=== PATIENT | female | born 1965 | race Caucasian/White ===

== ENCOUNTER → 2016-11-03 | Outpatient (CLI) | payer OTHER ==
[2016-11-03 07:52] LABS: BLOOD UREA NITROGEN 14 mg/dL (7-18)
[2016-11-03 08:04] LABS: ASPARTATE AMINO TRANSFERASE 95 U/L (15-37)
[2016-11-05 12:07] LABS: ENDOMYSIAL IGA Negative (Negative); IMMUNOGLOBULIN A 156 mg/dL (87-352)
== END | disposition home or self-care (01) ==
LOC: LAB 07:14
PROVIDERS: ATTEND Family Medicine
DX: Z00.01 Encounter for general adult medical examination with abnormal findings (principal); E66.9 Obesity, unspecified; R03.0 Elevated blood-pressure reading, without diagnosis of hypertension; R14.0 Abdominal distension (gaseous); R19.7 Diarrhea, unspecified; E78.5 Hyperlipidemia, unspecified; E55.9 Vitamin D deficiency, unspecified; R79.89 Other specified abnormal findings of blood chemistry
CPT/HCPCS: 36415; 80053; 80061; 82306; 82784; 83036; 83516; 84436; 84443; 84480; 84481; 85025; 86003; 86005; 86255

== ENCOUNTER → 2016-11-26 | Outpatient (CLI) | payer OTHER ==
[2016-11-26 09:39] LABS: FERRITIN 224.5 ng/mL (8-252)
[2016-11-27 09:41] LABS: HEP B SURF. AB < 3.1 mIU/mL (0.0-10.0)
[2016-11-27 10:18] LABS: HEPATITIS A ANTIBODY TOTAL Nonreactive (Nonreactive)
== END | disposition home or self-care (01) ==
LOC: LAB 09:07
PROVIDERS: ATTEND Internal Medicine
DX: R79.89 Other specified abnormal findings of blood chemistry (principal)
CPT/HCPCS: 36415; 82390; 82728; 83516; 83540; 83550; 86706; 86708; 86803

== ENCOUNTER → 2016-11-27 | Outpatient (CLI) | payer OTHER | END | disposition home or self-care (01) | LOC: CFH 06:46 | PROVIDERS: ATTEND Internal Medicine | DX: K76.0 Fatty (change of) liver, not elsewhere classified (principal); K80.20 Calculus of gallbladder without cholecystitis without obstruction; R79.89 Other specified abnormal findings of blood chemistry | CPT/HCPCS: 76700 ==

== ENCOUNTER 2016-12-26 10:32 | Day surgery (SDC) | payer OTHER ==
[~2016-12-26] VITALS: Ht 160 cm; Wt 92.9 kg
[2016-12-26] MEDS ORDERED: SODIUM CHLORIDE 0.9% 1,000 ML IV SCH (11:13)
[2016-12-26 11:42] VITALS: BP 143/94
[2016-12-26] MEDS ORDERED: NONE PER PT (11:44)
[2016-12-26] MEDS ORDERED: LIDOCAINE 2%, 20ML ONE (11:50)
[2016-12-26] MEDS ORDERED: FENTANYL PF 100 MCG/2ML ONE (12:09)
[2016-12-26] MEDS ORDERED: FLUMAZENIL 0.1 MG/1 ML, 5ML ONE (12:09)
[2016-12-26] MEDS ORDERED: MIDAZOLAM 1 MG/ML, 5ML ONE (12:09)
[2016-12-26] MEDS ORDERED: NALOXONE 1 MG/ML, 2ML ONE (12:09)
== END 2016-12-26 14:55 ==
LOC: OUT 10:32
PROVIDERS: ATTEND Internal Medicine
DX: K76.0 Fatty (change of) liver, not elsewhere classified (principal)
CPT/HCPCS: 36415; 47000; 76942; 85610; 88307; 88313; 99156; 99157; J2250; J3010; J3490; J7030; J2310

== ENCOUNTER → 2017-01-27 | Outpatient (CLI) | payer OTHER ==
[~2017-01-27] MED LIST: CHOL40002 PO; MULT-224 PO; NONE PER PT; VIT1TABL32 PO
== END ==
LOC: STAR 08:26
PROVIDERS: ATTEND Surgery
DX: Z02.9 Encounter for administrative examinations, unspecified (principal)

== ENCOUNTER 2017-02-04 06:06 | Day surgery (SDC) | payer OTHER ==
[~2017-02-04] VITALS: Ht 160 cm; Wt 95.2 kg
[2017-02-04] MEDS ORDERED: LACTATED RINGERS 1,000 ML IV SCH (06:54)
[2017-02-04 06:55] VITALS: BP 159/99
[2017-02-04] MEDS ORDERED: FENTANYL PF 100 MCG/2ML ONE ×3 (07:05→09:20)
[2017-02-04] MEDS ORDERED: MIDAZOLAM 1 MG/ML, 2ML ONE (07:05)
[2017-02-04] MEDS ORDERED: ROCURONIUM 10 MG/ML ONE ×2 (07:06)
[2017-02-04] MEDS ORDERED: PROPOFOL 10 MG/ML, 20ML ONE (07:07)
[2017-02-04] MEDS ORDERED: LIDOCAINE-MPF 2% ,5ML ONE (07:07)
[2017-02-04] MEDS ORDERED: PHENYLEPHRINE 10 MG/ML ONE (07:08)
[2017-02-04] MEDS ORDERED: CEFOTETAN PMX 2GM/50ML 50 ML ONE (07:09)
[2017-02-04] MEDS ORDERED: LIDOCAINE 4%, 4 ML SYR/CANN TP ONE (07:11)
[2017-02-04] MEDS ORDERED: BUPIVACAINE/PF 0.5% ONE (07:13)
[2017-02-04] MEDS ORDERED: EPINEPHRINE 1 MG/ML, 1ML ONE (07:14)
[2017-02-04 07:18] LABS: HCG UR LOT HCG7030192
[2017-02-04 07:27] LABS: HCG UR OBC PASS
[2017-02-04] MEDS ORDERED: PROPOFOL 50 ML ONE (07:29)
[2017-02-04] MEDS ORDERED: LABETALOL 5MG/ML, 20ML ONE ×2 (07:29→07:57)
[2017-02-04] MEDS ORDERED: DEXAMETHASONE 4 MG/ML, 1ML ONE ×2 (07:39)
[2017-02-04] MEDS ORDERED: HYDROmorphone 1 MG/ML, 1ML ONE (07:56)
[2017-02-04] MEDS ORDERED: hydrALAzine 20 MG/ML, 1ML IV PRN (08:00)
[2017-02-04] MEDS ORDERED: ACETAMINOPHEN 325 MG TABLET PO PRN (08:00)
[2017-02-04] MEDS ORDERED: MEPERIDINE/PF 25MG/0.5ML IVPush PRN (08:00)
[2017-02-04] MEDS ORDERED: LABETALOL 5MG/ML, 20ML IV PRN (08:00)
[2017-02-04] MEDS ORDERED: ONDANSETRON 2MG/ML, 2ML IVPush PRN ×2 (08:00→14:00)
[2017-02-04] MEDS ORDERED: PROMETHAZINE 25 MG/ML, 1ML IV PRN (08:00)
[2017-02-04] MEDS ORDERED: KETAMINE 10 MG/ML, 20ML ONE (08:06)
[2017-02-04] MEDS ORDERED: ONDANSETRON 2MG/ML, 2ML ONE ×3 (08:14→13:44)
[2017-02-04] MEDS ORDERED: KETOROLAC 30 MG/1 ML ONE (08:14)
[2017-02-04] MEDS ORDERED: OXYcodone 5 MG/5 ML ORAL.SOL UDC ONE ×2 (09:20→09:42)
[2017-02-04] MEDS ORDERED: ACETAMINOPHEN 650 MG/20.3 ML UDC ONE (09:20)
[2017-02-04] MEDS: FENTANYL PF 100 MCG/2ML IV PRN ×2 (09:22→09:28)
[2017-02-04] MEDS: OXYcodone 5 MG/5 ML ORAL.SOL UDC PO PRN ×2 (09:23→09:43)
[2017-02-04] MEDS ORDERED: HYDROmorphone 2 MG/ML, 1ML ONE (09:37)
[2017-02-04] MEDS: HYDROmorphone 1 MG/ML, 1ML IV PRN ×4 (09:39→10:20)
[2017-02-04] MEDS ORDERED: DIPHENHYDRAMINE 50 MG/ML, 1ML ONE (10:10)
[2017-02-04] MEDS ORDERED: DIPHENHYDRAMINE 50 MG/ML, 1ML IVPush ONE (10:30)
[2017-02-04] MEDS ORDERED: OXYcodone/APAP 5/325MG TABLET ONE (13:50)
[2017-02-04] MEDS: OXYcodone/APAP 5/325MG TABLET PO PRN ×2 (13:56→17:57)
== END 2017-02-04 18:00 ==
LOC: OUT 06:06
PROVIDERS: ATTEND Surgery
DX: K80.10 Calculus of gallbladder with chronic cholecystitis without obstruction (principal); Z98.890 Other specified postprocedural states
CPT/HCPCS: 47562; 81025; 88304; J0171; J1100; J1170; J1200; J1885; J2250; J2370; J2405; J2704; J3010; J3490; J7120; S0074

== ENCOUNTER → 2017-04-27 | Outpatient (CLI) | payer OTHER | END | disposition home or self-care (01) | LOC: CFH 07:10 | PROVIDERS: ATTEND Family Medicine | DX: Z12.31 Encounter for screening mammogram for malignant neoplasm of breast (principal); Z80.3 Family history of malignant neoplasm of breast | CPT/HCPCS: 77063; 77067 ==

== ENCOUNTER → 2018-01-11 | Outpatient (CLI) | payer OTHER ==
[2018-01-11 08:02] LABS: BASOPHILS # (AUTO) 0.02 x10^3/uL (0-0.1); BASOPHILS % (AUTO) 0 % (0-1); EOSINOPHILS % (AUTO) 2 % (1-7); LYMPHOCYTES # (AUTO) 2.63 x10^3/uL (1-3.4); LYMPHOCYTES % (AUTO) 33 % (22-44); MD NO; MEAN CORPUSCULAR HGB CONC 34.7 g/dL (32.4-35.8); MEAN CORPUSCULAR VOLUME 89.4 fL (80-100); MEAN PLATELET VOLUME 7.7 fL (7.4-10.4); MONOCYTES # (AUTO) 0.59 x10^3/uL (0.2-0.8); MONOCYTES % (AUTO) 7 % (2-9); NEUTROPHILS % (AUTO) 57 % (42-75); PLATELET COUNT 354 x10^3/uL (130-400); RED BLOOD COUNT 4.94 x10^6/uL (3.82-5.3); RED CELL DISTRIBUTION WIDTH 12.7 % (9.6-15.2)
[2018-01-11 08:14] LABS: ALANINE AMINOTRANSFERASE 92 U/L (12-78); ALBUMIN 3.9 g/dL (3.4-5.0); ANION GAP 8 mmol/L (5-15); CALCIUM 8.6 mg/dL (8.5-10.1); CHLORIDE 109 mmol/L (98-107)
[2018-01-11 08:23] LABS: HEMOGLOBIN A1C 5.2 % (4.2-6.3)
[2018-01-11 08:25] LABS: ALKALINE PHOSPHATASE 135 U/L (45-117); BILIRUBIN,TOTAL 0.5 mg/dL (0.2-1.0); CHOL/HDL RATIO 5.8; CHOLESTEROL, TOTAL 213 mg/dL (140-239); CREATININE 0.79 mg/dL (0.55-1.02); HDL CHOL % 17 % (28-40); HDL CHOLESTEROL (DIRECT) 37 mg/dL (40-60); LDL CHOLESTEROL,CALCULATED 114 mg/dL (54-169); LDL/HDL RATIO 3.1 (0.5-3.0); TOTAL PROTEIN 7.6 g/dL (6.4-8.2); TRIGLYCERIDES 310 mg/dL (50-200); VLDL CHOLESTEROL 62 mg/dL (0-25)
== END | disposition home or self-care (01) ==
LOC: LAB 07:45
PROVIDERS: ATTEND Family Medicine
DX: Z00.01 Encounter for general adult medical examination with abnormal findings (principal); E78.2 Mixed hyperlipidemia; E55.9 Vitamin D deficiency, unspecified; E66.9 Obesity, unspecified; R03.0 Elevated blood-pressure reading, without diagnosis of hypertension
CPT/HCPCS: 36415; 80053; 80061; 82306; 83036; 84443; 85025

== ENCOUNTER → 2018-05-03 | Outpatient (CLI) | payer OTHER ==
[~2018-05-03] MED LIST changes: -MULT-224 PO; +MULT-642 PO
== END | disposition home or self-care (01) ==
LOC: CFH 08:08
PROVIDERS: ATTEND Family Medicine
DX: Z12.31 Encounter for screening mammogram for malignant neoplasm of breast (principal)
CPT/HCPCS: 77063; 77067

== ENCOUNTER → 2019-05-16 | Outpatient (CLI) | payer OTHER ==
[2019-05-16 09:01] LABS: BASOPHILS # (AUTO) 0.02 x10^3/uL (0-0.1); BASOPHILS % (AUTO) 0 % (0-1); EOSINOPHILS # (AUTO) 0.19 x10^3/uL (0-0.4); EOSINOPHILS % (AUTO) 3 % (1-7); LYMPHOCYTES # (AUTO) 2.23 x10^3/uL (1-3.4); LYMPHOCYTES % (AUTO) 35 % (22-44); MD NO; MEAN CORPUSCULAR HEMOGLOBIN 30.8 pg (27.0-34.8); MEAN CORPUSCULAR HGB CONC 34.2 g/dL (32.4-35.8); MEAN CORPUSCULAR VOLUME 90.1 fL (80-100); MEAN PLATELET VOLUME 7.6 fL (7.4-10.4); MONOCYTES # (AUTO) 0.43 x10^3/uL (0.2-0.8); MONOCYTES % (AUTO) 7 % (2-9); NEUTROPHILS # (AUTO) 3.57 x10^3/uL (1.8-6.8); NEUTROPHILS % (AUTO) 56 % (42-75); PLATELET COUNT 323 x10^3/uL (130-400); RED BLOOD COUNT 4.89 x10^6/uL (3.82-5.3); RED CELL DISTRIBUTION WIDTH 13.1 % (9.6-15.2)
[2019-05-16 09:13] LABS: ALANINE AMINOTRANSFERASE 120 U/L (12-78); ALBUMIN 3.9 g/dL (3.4-5.0); ANION GAP 8 mmol/L (5-15); CALCIUM 8.7 mg/dL (8.5-10.1); CHLORIDE 108 mmol/L (98-107); CHOLESTEROL, TOTAL 239 mg/dL (140-239); CREATININE 0.93 mg/dL (0.55-1.02); TRIGLYCERIDES 400 mg/dL (50-200); VLDL CHOLESTEROL 80 mg/dL (0-25)
[2019-05-16 09:23] LABS: ALKALINE PHOSPHATASE 132 U/L (45-117); BILIRUBIN,TOTAL 0.4 mg/dL (0.2-1.0); CHOL/HDL RATIO 6.8; HDL CHOL % 15 % (28-40); HDL CHOLESTEROL (DIRECT) 35 mg/dL (40-60); LDL CHOLESTEROL,CALCULATED 124 mg/dL (54-169); LDL/HDL RATIO 3.5 (0.5-3.0); TOTAL PROTEIN 7.6 g/dL (6.4-8.2)
== END | disposition home or self-care (01) ==
LOC: LAB 08:35
PROVIDERS: ATTEND Nurse Practitioner Family
DX: Z00.01 Encounter for general adult medical examination with abnormal findings (principal); E78.2 Mixed hyperlipidemia; N92.1 Excessive and frequent menstruation with irregular cycle; E55.9 Vitamin D deficiency, unspecified; R03.0 Elevated blood-pressure reading, without diagnosis of hypertension; R19.7 Diarrhea, unspecified; R94.5 Abnormal results of liver function studies
CPT/HCPCS: 36415; 80053; 80061; 82306; 82670; 83001; 83002; 84443; 85025

== ENCOUNTER → 2019-05-24 | Outpatient (CLI) | payer OTHER | END | disposition home or self-care (01) | LOC: CFH 07:05 | PROVIDERS: ATTEND Nurse Practitioner Family | DX: Z12.31 Encounter for screening mammogram for malignant neoplasm of breast (principal); Z80.3 Family history of malignant neoplasm of breast | CPT/HCPCS: 77063; 77067 ==

== ENCOUNTER → 2019-06-09 | Outpatient (CLI) | payer OTHER | END | disposition home or self-care (01) | LOC: CFH 07:05 | PROVIDERS: ATTEND Nurse Practitioner Family | DX: K76.89 Other specified diseases of liver (principal); Z90.49 Acquired absence of other specified parts of digestive tract | CPT/HCPCS: 76700 ==

== ENCOUNTER → 2019-06-17 | Outpatient (CLI) | payer OTHER ==
[~2019-06-17] MED LIST changes: +OMNIPAQUE 350 MG/ML, 100ML BOTTLE ONE
== END | disposition home or self-care (01) ==
LOC: CFH 08:27
PROVIDERS: ATTEND Nurse Practitioner Family
DX: R93.2 Abnormal findings on diagnostic imaging of liver and biliary tract (principal); R93.422 Abnormal radiologic findings on diagnostic imaging of left kidney; Z90.49 Acquired absence of other specified parts of digestive tract
CPT/HCPCS: 74170; Q9967

== ENCOUNTER → 2019-08-08 | Outpatient (CLI) | payer OTHER ==
[~2019-08-08] MED LIST changes: -OMNIPAQUE 350 MG/ML, 100ML BOTTLE ONE
[2019-08-08 09:18] LABS: ALBUMIN 3.6 g/dL (3.4-5.0); BILIRUBIN, DIRECT 0.1 mg/dL (0.1-0.2)
[2019-08-08 09:21] LABS: BILIRUBIN,INDIRECT 0.4 mg/dL (0.0-2.0); BILIRUBIN,TOTAL 0.5 mg/dL (0.2-1.0); CHOL/HDL RATIO 4.9; LDL/HDL RATIO 2.4 (0.5-3.0); TOTAL PROTEIN 7.2 g/dL (6.4-8.2)
== END | disposition home or self-care (01) ==
LOC: LAB 08:48
PROVIDERS: ATTEND Nurse Practitioner Family
DX: E78.5 Hyperlipidemia, unspecified (principal); R94.5 Abnormal results of liver function studies
CPT/HCPCS: 36415; 80061; 80076

== ENCOUNTER 2019-09-05 07:41 | Outpatient (CLI) | payer OTHER ==
[2019-11-10] MEDS ORDERED: ATOR20TA37 PO (15:37)
[2019-11-10] MEDS ORDERED: LOSA50TA14 PO (15:37)
== END 2019-09-05 23:59 | disposition home or self-care (01) ==
LOC: LAB 07:41
PROVIDERS: ATTEND Student in an Organized Health Care Education/Training Program
DX: Z80.3 Family history of malignant neoplasm of breast (principal)
CPT/HCPCS: 81162; 81213

== ENCOUNTER 2019-10-31 07:53 | Outpatient (CLI) | payer OTHER ==
[2019-10-31 08:19] LABS: ALBUMIN 3.5 g/dL (3.4-5.0); BILIRUBIN, DIRECT 0.2 mg/dL (0.1-0.2)
[2019-10-31 08:21] LABS: BILIRUBIN,INDIRECT 0.6 mg/dL (0.0-2.0); BILIRUBIN,TOTAL 0.8 mg/dL (0.2-1.0); CHOL/HDL RATIO 3.4; LDL/HDL RATIO 1.4 (0.5-3.0); TOTAL PROTEIN 6.9 g/dL (6.4-8.2)
[2019-11-10] MEDS ORDERED: LOSA50TA14 PO (15:37)
[2019-11-10] MEDS ORDERED: ATOR20TA37 PO (15:37)
== END 2019-10-31 23:59 | disposition home or self-care (01) ==
LOC: LAB 07:53
PROVIDERS: ATTEND Nurse Practitioner Family
DX: E78.2 Mixed hyperlipidemia (principal); R94.5 Abnormal results of liver function studies
CPT/HCPCS: 36415; 80061; 80076

== ENCOUNTER → 2019-11-10 | Outpatient (CLI) | payer OTHER ==
[~2019-11-10] MED LIST changes: +ATOR20TA37 PO; +LOSA50TA14 PO
[2019-11-10 16:15] LABS: BASOPHILS # (AUTO) 0.02 x10^3/uL (0-0.1); BASOPHILS % (AUTO) 0 % (0-1); EOSINOPHILS # (AUTO) 0.13 x10^3/uL (0-0.4); EOSINOPHILS % (AUTO) 2 % (1-7); LYMPHOCYTES # (AUTO) 1.92 x10^3/uL (1-3.4); LYMPHOCYTES % (AUTO) 24 % (22-44); MD NO; MEAN CORPUSCULAR HEMOGLOBIN 30.6 pg (27.0-34.8); MEAN CORPUSCULAR HGB CONC 33.8 g/dL (32.4-35.8); MEAN CORPUSCULAR VOLUME 90.6 fL (80-100); MEAN PLATELET VOLUME 8.1 fL (7.4-10.4); MONOCYTES # (AUTO) 0.48 x10^3/uL (0.2-0.8); MONOCYTES % (AUTO) 6 % (2-9); NEUTROPHILS # (AUTO) 5.59 x10^3/uL (1.8-6.8); NEUTROPHILS % (AUTO) 69 % (42-75); PLATELET COUNT 310 x10^3/uL (130-400); RED BLOOD COUNT 4.73 x10^6/uL (3.82-5.3); RED CELL DISTRIBUTION WIDTH 12.7 % (9.6-15.2)
[2019-11-10 16:16] LABS: MICROSCOPIC NOT IND
[2019-11-10 16:28] LABS: ANION GAP 6 mmol/L (5-15); CALCIUM 8.7 mg/dL (8.5-10.1); CHLORIDE 112 mmol/L (98-107)
[2019-11-10 16:33] LABS: ALANINE AMINOTRANSFERASE 97 U/L (12-78); ALKALINE PHOSPHATASE 135 U/L (45-117); BILIRUBIN,TOTAL 0.4 mg/dL (0.2-1.0); CREATININE 0.85 mg/dL (0.55-1.02); TOTAL PROTEIN 7.4 g/dL (6.4-8.2)
== END | disposition home or self-care (01) ==
LOC: STAR 15:00
PROVIDERS: ATTEND Student in an Organized Health Care Education/Training Program
DX: Z01.818 Encounter for other preprocedural examination (principal); N93.9 Abnormal uterine and vaginal bleeding, unspecified
CPT/HCPCS: 36415; 71046; 80053; 81003; 84702; 85025; 93005

== ENCOUNTER → 2019-11-16 | Outpatient (CLI) | payer OTHER | END | disposition home or self-care (01) | LOC: STAR 15:31 | PROVIDERS: ATTEND Student in an Organized Health Care Education/Training Program | DX: Z11.59 Encounter for screening for other viral diseases (principal) | CPT/HCPCS: 36415; 87635 ==

== ENCOUNTER 2019-11-21 13:42 | Observation (INO) | payer OTHER ==
[~2019-11-21] VITALS: Ht 160 cm; Wt 97.6 kg
[2019-11-21] MEDS ORDERED: LACTATED RINGERS 1,000 ML IV SCH ×2 (13:53→15:03)
[2019-11-21] MEDS ORDERED: CHLORHEXIDINE 15 ML UDC MM ONE ×2 (14:00→15:30)
[2019-11-21 14:32] LABS: HCG UR SG 1.024 (1.003-1.030)
[2019-11-21] MEDS ORDERED: FENTANYL PF 100 MCG/2ML ONE ×3 (15:18→19:50)
[2019-11-21] MEDS ORDERED: MIDAZOLAM 1 MG/ML, 2ML ONE (15:18)
[2019-11-21] MEDS ORDERED: NEOSTIGMINE 1 MG/ML, 10ML ONE (15:19)
[2019-11-21] MEDS ORDERED: ROCURONIUM 10MG/ML,5ML ONE (15:19)
[2019-11-21] MEDS ORDERED: ONDANSETRON 2MG/ML, 2ML ONE ×2 (15:19→19:54)
[2019-11-21] MEDS ORDERED: GLYCOPYRROLATE 0.2MG/1ML, 5ML ONE (15:19)
[2019-11-21] MEDS ORDERED: DEXAMETHASONE 4 MG/ML, 1ML ONE (15:19)
[2019-11-21] MEDS ORDERED: SUCCINYLCHOLINE 20 MG/ML, 10ML ONE (15:19)
[2019-11-21] MEDS ORDERED: PROPOFOL 10 MG/ML, 20ML ONE (15:19)
[2019-11-21] MEDS ORDERED: CEFAZOLIN 1,000 MG ONE (15:19)
[2019-11-21] MEDS ORDERED: SCOPOLAMINE 1MG PATCH TD ONE (15:34)
[2019-11-21] MEDS ORDERED: BUPIVACAINE/PF 0.25% ONE (15:44)
[2019-11-21] MEDS ORDERED: SILVER NITRATE STICK TP ONE (15:44)
[2019-11-21] MEDS ORDERED: FLUORESCEIN SODIUM 500 MG/5 ML ONE (15:45)
[2019-11-21] MEDS ORDERED: SCOPOLAMINE 1MG PATCH TD SCH (16:00)
[2019-11-21] MEDS ORDERED: SUGAMMADEX 200 MG/2 ML IVPush ONE (16:01)
[2019-11-21] MEDS ORDERED: KETOROLAC 30 MG/1 ML IVPush PRN (16:30)
[2019-11-21] MEDS ORDERED: MEPERIDINE/PF 25MG/0.5ML IVPush PRN (16:30)
[2019-11-21] MEDS ORDERED: PROMETHAZINE 25 MG/ML, 1ML IVPush PRN (16:30)
[2019-11-21] MEDS ORDERED: HYDROcodone/APAP 7.5-325MG/15ML UDC PO PRN (16:30)
[2019-11-21] MEDS ORDERED: FENTANYL PF 100 MCG/2ML IV PRN (16:30)
[2019-11-21] MEDS ORDERED: HYDROmorphone 1 MG/ML, 1ML INJ IVPush PRN (16:30)
[2019-11-21] MEDS ORDERED: OXYcodone 5 MG/5 ML ORAL.SOL UDC PO PRN (16:30)
[2019-11-21] MEDS ORDERED: OXYcodone 5 MG/5 ML ORAL.SOL UDC ONE (19:50)
[2019-11-21] MEDS ORDERED: morphine SULFATE 10 MG/ML, 1ML IV PRN (21:00)
[2019-11-21] MEDS: ATORVASTATIN 20 MG TABLET PO SCH (21:00)
[2019-11-21] MEDS: LOSARTAN 50MG TABLET PO SCH (21:00)
[2019-11-21] MEDS: KETOROLAC 30 MG/1 ML IV PRN (21:07)
[2019-11-21] MEDS: SIMETHICONE 80 MG CHEW TAB PO SCH (21:12)
[2019-11-21 23:44] VITALS: BP 112/75
[2019-11-22] MEDS: ONDANSETRON 2MG/ML, 2ML IV PRN ×2 (01:25→09:37)
[2019-11-22] MEDS: OXYcodone/APAP 5/325MG TABLET PO PRN ×5 (01:26→20:31)
[2019-11-22 03:30] VITALS: BP 103/63
[2019-11-22 07:08] VITALS: BP 103/68
[2019-11-22] MEDS: SIMETHICONE 80 MG CHEW TAB PO SCH ×3 (09:37→20:31)
[2019-11-22 14:09] VITALS: BP 108/74
[2019-11-22 19:20] VITALS: BP 133/72
[2019-11-22] MEDS: KETOROLAC 30 MG/1 ML IV PRN (20:30)
[2019-11-22] MEDS: ATORVASTATIN 20 MG TABLET PO SCH (20:31)
[2019-11-22] MEDS: LOSARTAN 50MG TABLET PO SCH (20:31)
[2019-11-23] MEDS: OXYcodone/APAP 5/325MG TABLET PO PRN ×3 (00:27→15:40)
[2019-11-23] MEDS: KETOROLAC 30 MG/1 ML IV PRN (02:21)
[2019-11-23 02:25] VITALS: BP 99/64
[2019-11-23] MEDS ORDERED: SODIUM CHLORIDE 0.9% 1,000ML IVBOLUS ONE (05:00)
[2019-11-23 06:10] LABS: ANION GAP 6 mmol/L (5-15); CALCIUM 7.8 mg/dL (8.5-10.1); CHLORIDE 102 mmol/L (98-107)
[2019-11-23 06:11] LABS: CREATININE 1.01 mg/dL (0.55-1.02)
[2019-11-23 06:29] VITALS: BP 103/66
[2019-11-23] MEDS ORDERED: BISACODYL 10 MG SUPP PR PRN (06:30)
[2019-11-23] MEDS ORDERED: MAGNESIUM HYDROXIDE 8%, 30ML UDC PO PRN (06:30)
[2019-11-23] MEDS ORDERED: POTASSIUM CHLORIDE 10 MEQ in SODIUM CHLORIDE 0.9% 250 ML IV ONE (07:30)
[2019-11-23] MEDS: ONDANSETRON 2MG/ML, 2ML IV PRN (07:56)
[2019-11-23] MEDS ORDERED: SODIUM CHLORIDE 0.9% 1,000 ML IV SCH (08:00)
[2019-11-23] MEDS ORDERED: DOCUSATE 100 MG CAPSULE PO SCH (09:00)
[2019-11-23] MEDS: SIMETHICONE 80 MG CHEW TAB PO SCH ×2 (10:00→15:40)
[2019-11-23 13:40] VITALS: BP 98/62
[2019-11-23 19:35] VITALS: BP 98/63
[2019-11-24] MEDS ORDERED: IBUPROFEN 600 MG TABLET PO SCH (06:00)
== END 2019-11-23 19:45 | disposition home or self-care (01) ==
LOC: OUT 13:42 → 4NE 20:32 → OUT 22:03 → 4NE 22:19
PROVIDERS: ADMIT Student in an Organized Health Care Education/Training Program; ATTEND Student in an Organized Health Care Education/Training Program
DX: N93.8 Other specified abnormal uterine and vaginal bleeding (principal); K66.0 Peritoneal adhesions (postprocedural) (postinfection); N31.2 Flaccid neuropathic bladder, not elsewhere classified; N83.8 Other noninflammatory disorders of ovary, fallopian tube and broad ligament; I10 Essential (primary) hypertension; E78.00 Pure hypercholesterolemia, unspecified; K76.0 Fatty (change of) liver, not elsewhere classified; G89.18 Other acute postprocedural pain; Z53.31 Laparoscopic surgical procedure converted to open procedure; Z79.899 Other long term (current) drug therapy
CPT/HCPCS: 36415; 52000; 58180; 74018; 80048; 81025; 85014; 85018; 86850; 86900; 88307; 96361; 96374; 96375; 96376; G0378; J0330; J0690; J1100; J1885; J2250; J2270; J2405; J2704; J2710; J3010; J3480; J3490; J7030; J7050; J7120

== ENCOUNTER → 2020-02-27 | Outpatient (CLI) | payer OTHER ==
[2020-02-27 07:56] LABS: CHOL/HDL RATIO 3.7; LDL/HDL RATIO 1.8 (0.5-3.0)
== END | disposition home or self-care (01) ==
LOC: LAB 07:26
PROVIDERS: ATTEND Nurse Practitioner Family
DX: R94.5 Abnormal results of liver function studies (principal); E78.2 Mixed hyperlipidemia
CPT/HCPCS: 36415; 80061; 80074

== ENCOUNTER 2020-12-03 07:55 | Outpatient (CLI) | payer OTHER ==
[2020-12-03 08:24] LABS: ALANINE AMINOTRANSFERASE 78 U/L (12-78); ALBUMIN 4.1 g/dL (3.4-5.0); ANION GAP 6 mmol/L (5-15); BASOPHILS % (AUTO) 0 % (0-1); CALCIUM 9.2 mg/dL (8.5-10.1); CHLORIDE 105 mmol/L (98-107); CHOLESTEROL, TOTAL 153 mg/dL (140-239); CREATININE 0.91 mg/dL (0.55-1.02); EOSINOPHILS % (AUTO) 3 % (1-7); LYMPHOCYTES % (AUTO) 34 % (22-44); MEAN CORPUSCULAR HEMOGLOBIN 30.4 pg (27.0-34.8); MEAN CORPUSCULAR HGB CONC 34.5 g/dL (32.4-35.8); MEAN PLATELET VOLUME 7.7 fL (7.4-10.4); MONOCYTES % (AUTO) 8 % (2-9); NEUTROPHILS % (AUTO) 55 % (42-75); PLATELET COUNT 329 x10^3/uL (130-400); RED BLOOD COUNT 4.89 x10^6/uL (3.82-5.3)
[2020-12-03 08:34] LABS: ALKALINE PHOSPHATASE 159 U/L (45-117); BILIRUBIN,TOTAL 0.7 mg/dL (0.2-1.0); CHOL/HDL RATIO 3.5; HDL CHOL % 29 % (28-40); HDL CHOLESTEROL (DIRECT) 44 mg/dL (40-60); LDL CHOLESTEROL,CALCULATED 74 mg/dL (54-169); LDL/HDL RATIO 1.7 (0.5-3.0); TOTAL PROTEIN 7.7 g/dL (6.4-8.2); TRIGLYCERIDES 177 mg/dL (50-200); VLDL CHOLESTEROL 35 mg/dL (0-25)
== END 2020-12-03 23:59 | disposition home or self-care (01) ==
LOC: LAB 07:55
PROVIDERS: ATTEND Physician Assistant
DX: Z13.29 Encounter for screening for other suspected endocrine disorder (principal); E78.2 Mixed hyperlipidemia
CPT/HCPCS: 36415; 80053; 80061; 83036; 84443; 85025